=== PATIENT | male | born 1970 | race Hispanic/Latino ===

== ENCOUNTER 2024-03-23 05:02 | Emergency (ER) | payer BC, OTHER ==
[2024-03-23] MEDS ORDERED: Pantoprazole 40 MG VIAL ONE (05:29)
[2024-03-23] MEDS ORDERED: Ondansetron PF 4 MG/2 ML Vial ONE (05:29)
[2024-03-23] MEDS ORDERED: Ketorolac Tromethamine 30 MG (1 mL) VIAL ONE (05:29)
[2024-03-23 05:32] LABS: #Basophils 0.1 thou/uL (0.0-0.2); #Eosinphils 0.1 thou/uL (0.0-0.7); #Lymphocytes 2.2 thou/uL (1.20-3.40); #Monocytes 0.6 thou/uL (0.11-0.59); #Neutrophils 6.5 thou/uL (1.40-6.50); %Basophils 0.6 % (0.0-1.0); %Eosinophils 1.5 % (0.0-10.0); %Lymphocytes 23.1 % (21.0-51.0); %Monocytes 6.3 % (0.0-10.0); %Neutrophils 68.5 % (42.0-75.0); Hematocrit 46.9 % (42.0-52.0); Hemoglobin 15.6 g/dL (14.0-18.0); Mean Corpuscular HGB CONC 33.3 g/dL (32.0-36.0); Mean Corpuscular Hemoglobin 30.1 pg (27.0-31.0); Mean Corpuscular Volume 90.5 fl (78.0-98.0); Mean Platelet Volume 8.1 fL (7.4-10.4); Platelet Count 327 10x3/uL (130-400); RBC Distribution Width 11.8 % (11.5-14.5); Red Blood Cell (RBC) Count 5.18 mill/uL (4.70-6.10); White Blood Cell (WBC) Count 9.5 10x3/uL (4.8-10.8)
[2024-03-23 05:50] LABS: ALT (SGPT) 85 U/L (8-55); AST (SGOT) 157 U/L (5-34); Alkaline Phosphatase 129 U/L (40-110); Anion Gap 16 mmol/L (10-20); BUN (Urea Nitrogen) 21 mg/dL (8.4-25.7); Bilirubin, Total 0.4 mg/dL (0.2-1.2); Calc. Creatinine Clearance 0 mL/min (70-130); Calcium 9.7 mg/dL (7.8-10.44); Carbon Dioxide 23 mmol/L (22-29); Chloride 105 mmol/L (98-107); Estimated GFR 98; Globulin 3.7 g/dL (2.4-3.5); Glucose 112 mg/dL (70-105); Lipase 57 U/L (8-78); Potassium 4.3 mmol/L (3.5-5.1); Protein, Total 7.7 g/dL (6.0-8.3); Sodium 140 mmol/L (136-145)
[2024-03-23 05:54] LABS: Bilirubin Negative (Negative); Blood, Urine Negative (Negative); Clarity Cloudy (Clear); Glucose, Urine (Dipstick) Negative (Negative); Ketone, Urine Negative (Negative); Leukocyte Negative (Negative); Nitrite Negative (Negative); Protein, Urine (Dipstick) Negative (Neg-Trace); Specific Gravity, Urine 1.025 (1.005-1.030)
[2024-03-23 05:57] LABS: Bacteria/HPF None Seen HPF (None Seen); CAUTI Indications for Culture Pelvic or flank pain; RBC/HPF None Seen HPF (0-3); Squamous Epithelial None Seen HPF (0-3); Urine Culture Reflex No No; WBC/HPF None Seen HPF (0-3)
[2024-03-23] MEDS ORDERED: Morphine 4 MG/ML VIAL ONE (06:16)
[2024-03-23] MEDS ORDERED: Morphine 2 MG/ML VIAL ONE (08:34)
[2024-03-23] MEDS ORDERED: Iopamidol 370 76% 100 ML VIAL ONE (09:00)
[2024-03-23] MEDS ORDERED: LevoFLOXacin 750 mg/D5W 150 ml Premix Bag ONE (09:25)
== END 2024-03-23 10:26 | disposition short-term general hospital (02) ==
LOC: NAV ERS 05:02
DX: K80.50 Calculus of bile duct without cholangitis or cholecystitis without obstruction (principal); I25.10 Atherosclerotic heart disease of native coronary artery without angina pectoris; I10 Essential (primary) hypertension; F17.210 Nicotine dependence, cigarettes, uncomplicated
CPT/HCPCS: 74177; 80053; 81001; 83690; 85025; 93005; 96374; 96375; 96376; J1885; J1956; J2272; J2405; J2470; Q9967

== ENCOUNTER 2025-04-03 22:52 | Emergency (ER) | payer OTHER, SELFPAY | END 2025-04-03 23:25 | disposition home or self-care (01) | LOC: NAV ERS 22:52 | DX: T60.2X1A Toxic effect of other insecticides, accidental (unintentional), initial encounter (principal); L24.5 Irritant contact dermatitis due to other chemical products; I10 Essential (primary) hypertension; I25.10 Atherosclerotic heart disease of native coronary artery without angina pectoris; F17.210 Nicotine dependence, cigarettes, uncomplicated | CPT/HCPCS: 99283 ==